=== PATIENT | male | born 1960 | race African-American/Black ===

== ENCOUNTER 2016-04-13 12:16 | Emergency (ER) | payer SELFPAY ==
[~2016-04-13] VITALS: Ht 188 cm; Wt 95.3 kg
[2016-04-13 12:38] LABS: BASO # 0.1 x10^3/uL (0.0-0.2); BASO % 1 % (0-3); EOS % 6 % (0-3); HEMATOCRIT 43.8 % (39.0-53.0); HEMOGLOBIN 14.3 g/dL (13.0-17.5); LYMPH # 2.7 x10^3/uL (1.0-4.8); LYMPH % 46 % (24-48); MEAN CORPUSCULAR HEMOGLOBIN 28 pg (25-35); MEAN CORPUSCULAR HGB CONC 33 g/dL (31-37); MEAN CORPUSCULAR VOLUME 86 fL (79-100); MONO % 7 % (0-9); NEUT % 40 % (31-73); PLATELET COUNT 244 x10^3/uL (140-400); RED BLOOD COUNT 5.08 x10^6/uL (4.30-5.70); RED CELL DISTRIBUTION WIDTH 13.7 % (11.5-14.5); WHITE BLOOD COUNT 5.9 x10^3/uL (4.0-11.0)
[2016-04-13] MEDS ORDERED: ONDANSETRON PF 4 MG/2 ML VIAL. IV ONE (12:45)
[2016-04-13] MEDS ORDERED: FENTANYL PF 100 MCG/2 ML VIAL. IV ONE (12:45)
[2016-04-13] MEDS ORDERED: IV NORMAL SALINE 1000ML BAG 1,000 ML IV ONE (12:45)
[2016-04-13 12:52] LABS: BILIRUBIN,URINE NEGATIVE (NEG); GLUCOSE,URINE NEGATIVE (NEG); NITRITE,URINE NEGATIVE (NEG); PROTEIN,URINE NEGATIVE (NEG-TRACE)
[2016-04-13 13:00] LABS: CREATININE 1.1 mg/dL (0.7-1.3); GFR 84.1; POTASSIUM 4.1 mmol/L (3.5-5.1)
[2016-04-13 13:04] LABS: BACTERIA,URINE 0 /HPF (0-FEW); RBC,URINE 0 /HPF (0-2); SQUAMOUS EPITHELIAL CELL,UR OCC /LPF; WBC,URINE 0 /HPF (0-4)
[2016-04-13 13:06] LABS: ALBUMIN/GLOBULIN RATIO 0.9 (1.0-1.7); TOTAL BILIRUBIN 0.6 mg/dL (0.2-1.0); TOTAL PROTEIN 8.4 g/dL (6.4-8.2)
--- NOTE | 2016-04-13 13:23 | RAD ---
Indication severe right flank pain and hematuria. Axial images through the abdomen and pelvis were obtained. The examination was tailored for detection of renal and/or ureteral calculi. No IV or gastrointestinal contrast was administered. No prior imaging of the abdomen or pelvis is available. The lung bases are clear. The liver and spleen appear unremarkable. The gallbladder appears grossly normal. No pancreatic abnormality is seen. There are no adrenal or renal anomalies seen. There are no renal calculi side. There is no hydronephrosis hydroureter or calcification seen along the course of either ureter. An acute finding in the abdomen is not apparent. The pelvis is unremarkable. A few diverticula are seen in the large bowel. Active inflammation is not seen. The appendix is seen in the right lower quadrant and appears normal There is some stranding in the mid abdominal mesentery. This is a nonspecific finding. A few lymph nodes are seen in the same area which is also nonspecific IMPRESSION: No definite acute finding seen in the abdomen or pelvis Mild stranding and adenopathy in the abdominal mesentery is nonspecific PQRS Compliance Statement: One or more of the following individualized dose reduction techniques were utilized for this examination: 1. Automated exposure control 2. Adjustment of the mA and/or kV according to patient size 3. Use of iterative reconstruction technique
[2016-04-13] MEDS ORDERED: ONDA4TAB7 PO (13:43)
[2016-04-13] MEDS ORDERED: HYDR-971 PO (13:43)
--- NOTE | 2016-04-13 13:44 | PHYS DOC ---
Past Medical History Past Medical History: Asthma, Other Additional Past Medical Histor: OSTEOARTHRITIS, DEGENERATIVE DISC DX Past Surgical History: Knee Replacement, Other Additional Past Surgical Histo: R TOE SX Alcohol Use: Occasionally Drug Use: None Adult General Chief Complaint Chief Complaint: FLANK PAIN [facility] HPI 56-year-old male presents with right sided flank pain. He states the pain started yesterday. He denies any gross hematuria. Denies any fever chills sweats nausea vomiting or diarrhea. He denies any melena or hematochezia. He states he is never had this problem before and he's not had a history of kidney stones in the past. He states currently his pain is moderate. He has not taken any medication at home to help with the discomfort.] Review of Systems Review of Systems Constitutional: Denies fever or chills [] Eyes: Denies change in visual acuity, redness, or eye pain [] HENT: Denies nasal congestion or sore throat [] Respiratory: Denies cough or shortness of breath [] Cardiovascular: No additional information not addressed in HPI [] GI: Denies abdominal pain, nausea, vomiting, bloody stools or diarrhea [] : Denies dysuria or hematuria [] Musculoskeletal: Right flank pain [] Integument: Denies rash or skin lesions [] Neurologic: Denies headache, focal weakness or sensory changes [] Endocrine: Denies polyuria or polydipsia [] Current Medications Current Medications Current Medications Medications (Trade) Dose Ordered Sig/Pratik Start Time Stop Time Status Last Admin Dose Admin Fentanyl Citrate (Fentanyl 2ml Vial) 50 mcg 1X ONCE 04/13/16 12:45 04/13/16 12:46 DC 04/13/16 12:55 50 MCG Ondansetron HCl (Zofran) 4 mg 1X ONCE 04/13/16 12:45 04/13/16 12:46 DC 04/13/16 12:55 4 MG Sodium Chloride (Iv Sodium Chloride 0.9% 1000ml Bag) 1,000 ml @ 1,000 mls/hr 1X ONCE 04/13/16 12:45 04/13/16 13:44 04/13/16 12:56 1,000 MLS/HR Allergies Allergies Allergies Coded Allergies Type Severity Reaction Last Updated Verified naproxen Allergy Intermediate 04/13/16 Yes Physical Exam Physical Exam Constitutional: Well developed, well nourished, no acute distress, non-toxic appearance. [] HENT: Normocephalic, atraumatic, bilateral external ears normal, oropharynx moist, no oral exudates, nose normal. [] Eyes: PERRLA, EOMI, conjunctiva normal, no discharge. [] Neck: Normal range of motion, no tenderness, supple, no stridor. [] Cardiovascular:Heart rate regular rhythm, no murmur [] Lungs & Thorax: Bilateral breath sounds clear to auscultation [] Abdomen: Bowel sounds normal, soft, no tenderness, no masses, no pulsatile masses. [] Skin: Warm, dry, no erythema, no rash. [] Back: No tenderness, no CVA tenderness. [] Extremities: No tenderness, no cyanosis, no clubbing, ROM intact, no edema. [] Neurologic: Alert and oriented X 3, normal motor function, normal sensory function, no focal deficits noted. [] Psychologic: Affect normal, judgement normal, mood normal. [] Current Patient Data Vital Signs Vital Signs Date Time Temp Pulse Resp B/P Pulse Ox O2 Delivery O2 Flow Rate FiO2 04/13/16 12:55 17 100 Room Air 04/13/16 12:30 98.1 85 222/112 98.1 Lab Values Laboratory Tests Test 04/13/16 12:30 04/13/16 12:37 White Blood Count 5.9x10^3/uL (4.0-11.0) Red Blood Count 5.08x10^6/uL (4.30-5.70) Hemoglobin 14.3g/dL (13.0-17.5) Hematocrit 43.8% (39.0-53.0) Mean Corpuscular Volume 86fL (79-100) Mean Corpuscular Hemoglobin 28pg (25-35) Mean Corpuscular Hemoglobin Concent 33g/dL (31-37) Red Cell Distribution Width 13.7% (11.5-14.5) Platelet Count 244x10^3/uL (140-400) Neutrophils (%) (Auto) 40% (31-73) Lymphocytes (%) (Auto) 46% (24-48) Monocytes (%) (Auto) 7% (0-9) Eosinophils (%) (Auto) 6% (0-3) H Basophils (%) (Auto) 1% (0-3) Neutrophils # (Auto) 2.4x10^3uL (1.8-7.7) Lymphocytes # (Auto) 2.7x10^3/uL (1.0-4.8) Monocytes # (Auto) 0.4x10^3/uL (0.0-1.1) Eosinophils # (Auto) 0.4x10^3/uL (0.0-0.7) Basophils # (Auto) 0.1x10^3/uL (0.0-0.2) Sodium Level 142mmol/L (136-145) Potassium Level 4.1mmol/L (3.5-5.1) Chloride Level 104mmol/L (98-107) Carbon Dioxide Level 29mmol/L (21-32) Anion Gap 9 (6-14) Blood Urea Nitrogen 15mg/dL (8-26) Creatinine 1.1mg/dL (0.7-1.3) Estimated GFR (Cockcroft-Gault) 84.1 BUN/Creatinine Ratio 14 (6-20) Glucose Level 151mg/dL (70-99) H Calcium Level 9.0mg/dL (8.5-10.1) Total Bilirubin 0.6mg/dL (0.2-1.0) Aspartate Amino Transferase (AST) 20U/L (15-37) Alanine Aminotransferase (ALT) 25U/L (16-63) Alkaline Phosphatase 70U/L (46-116) Total Protein 8.4g/dL (6.4-8.2) H Albumin 4.0g/dL (3.4-5.0) Albumin/Globulin Ratio 0.9 (1.0-1.7) L Lipase 100U/L (73-393) Urine Collection Type Unknown Urine Color Yellow Urine Clarity Clear Urine pH 6.0 Urine Specific [place] 1.020 Urine Protein Negativemg/dL (NEG-TRACE) Urine Glucose (UA) Negativemg/dL (NEG) Urine Ketones (Stick) Negativemg/dL (NEG) Urine Blood Negative (NEG) Urine Nitrite Negative (NEG) Urine Bilirubin Negative (NEG) Urine Urobilinogen Dipstick 1.0mg/dL (0.2 mg/dL) Urine Leukocyte Esterase Negative (NEG) Urine RBC 0/HPF (0-2) Urine WBC 0/HPF (0-4) Urine Squamous Epithelial Cells Occ/LPF Urine Bacteria 0/HPF (0-FEW) Urine Mucus Mod/LPF Laboratory Tests 04/13/16 12:30 Laboratory Tests 04/13/16 12:30 EKG EKG [] Radiology/Procedures Radiology/Procedures [] Impressions: PROCEDURE: ABDOMEN PELVIS WO CONTRAST Indication severe right flank pain and hematuria. Axial images through the abdomen and pelvis were obtained. The examination was tailored for detection of renal and/or ureteral calculi. No IV or gastrointestinal contrast was administered. No prior imaging of the abdomen or pelvis is available. The lung bases are clear. The liver and spleen appear unremarkable. The gallbladder appears grossly normal. No pancreatic abnormality is seen. There are no adrenal or renal anomalies seen. There are no renal calculi side. There is no hydronephrosis hydroureter or calcification seen along the course of either ureter. An acute finding in the abdomen is not apparent. The pelvis is unremarkable. A few diverticula are seen in the large bowel. Active inflammation is not seen. The appendix is seen in the right lower quadrant and appears normal There is some stranding in the mid abdominal mesentery. This is a nonspecific finding. A few lymph nodes are seen in the same area which is also nonspecific IMPRESSION: No definite acute finding seen in the abdomen or pelvis Mild stranding and adenopathy in the abdominal Course & Med Decision Making Course & Med Decision Making Pertinent Labs and Imaging studies reviewed. (See chart for details) [ED course: Evaluation reveals 56-year-old male in mild to moderate distress secondary to flank pain. CT scan was unremarkable for any acute process. He was given IV fluids and pain medication during his stay in the department which did help alleviate his symptoms. I did discuss with the patient that we did not find anything serious today. I will give the patient some pain medication to take at home.] Dragon Disclaimer Dragon Disclaimer This electronic medical record was generated, in whole or in part, using a voice recognition dictation system. Departure Departure Impression: Primary Impression: Right flank pain Disposition: HOME, SELF-CARE Condition: IMPROVED Referrals: NO PCP (PCP) Patient Instructions: Flank Pain Additional Instructions: Thank you for allowing us to participate in your care today. Followup with your primary care physician in 3 days if your symptoms do not improve. Return to the emergency department you have any new or concerning findings. This should be evaluated by the primary care physician and any necessary consulting services for continued management within a few days after discharge. Return to emergency room if you have any new or concerning symptoms including but not limited to fever, chills, nausea, vomiting, intractable pain, any new rashes, chest pain, shortness of air, uncontrolled bleeding, difficulty breathing, and/or vision loss. You may have been prescribed medication that can change in your level of thinking and ability to operate machinery. These medications include hydrocodone and Ativan. Also, Benadryl has been known to do this as well. Be sure to check with your pharmacist and ask if the medications you've prescribed can affect your level of consciousness. I recommend not operating heavy machinery or driving while on medication such as these. Scripts Ondansetron Hcl (Zofran)4 Mg Tablet1 Tab PO Q8HRS PRN NAUSEA #20 TAB Prov:GUZMAN HU DO 04/13/16 Hydrocodone/Apap 5-325 ([place] 5-325 Tablet)1 Each Tablet1 Tab PO PRN Q6HRS PRN PAIN #14 TAB Prov:GUZMAN HU DO 04/13/16 GUZMAN HU DO Apr 13, 2016 13:44
[2016-04-13 13:50] VITALS: BP 175/81
== END 2016-04-13 13:55 | disposition home or self-care (01) ==
LOC: ER 12:16
DX: R10.9 Unspecified abdominal pain (principal); J45.909 Unspecified asthma, uncomplicated; M19.90 Unspecified osteoarthritis, unspecified site; Z96.659 Presence of unspecified artificial knee joint; Z88.8 Allergy status to other drugs, medicaments and biological substances
CPT/HCPCS: 36415; 74176; 80053; 81001; 83690; 85027; 96361; 96374; 96375; 99285; J2405; J3010; J7030

== ENCOUNTER 2016-04-15 19:57 | Emergency (ER) | payer SELFPAY ==
[~2016-04-15 19:57] MED LIST: HYDR-971 PO; ONDA4TAB7 PO
[2016-04-15 22:05] VITALS: BP 228/109
[2016-04-15] MEDS ORDERED: CYCL10TA2 PO (22:31)
[2016-04-15] MEDS ORDERED: HYDR12.53 PO (22:31)
[2016-04-15] MEDS ORDERED: PRED20TA PO (22:31)
--- NOTE | 2016-04-15 22:31 | PHYS DOC ---
Past Medical History Past Medical History: Asthma, Other Additional Past Medical Histor: OSTEOARTHRITIS, DEGENERATIVE DISC DX Past Surgical History: Knee Replacement, Other Additional Past Surgical Histo: R TOE SX Alcohol Use: Occasionally Drug Use: None Adult General Chief Complaint Chief Complaint: MEDICATION REFILL [facility] HPI Patient is a 56 year old who presents emergency Department stating is having a back pain states that the pain radiates down into his left leg. He denies any numbness or tingling. He states that he was here 2 days ago and was placed on hydrocodone with Zofran as he felt that this was related to his kidney stones issues in the past. Although CT scan at that time was negative. Patient returns tonight because he is out of his hydrocodone and is wanting something more for pain and discomfort. Patient states that he is new to the area and states that he normally had taken hydrocodone when he lived in [place] with a muscle relaxer. Patient also states that he does not have a history of high blood pressure although his blood pressure is been elevated on his last visit and at this visit. Patient denies any headaches, chest pain shortness of air difficulty breathing. Patient also denies any urinary symptoms at this time. Review of Systems Review of Systems Constitutional: Denies fever or chills [] Eyes: Denies change in visual acuity, redness, or eye pain [] HENT: Denies nasal congestion or sore throat [] Respiratory: Denies cough or shortness of breath [] Cardiovascular: No additional information not addressed in HPI [] GI: Denies abdominal pain, nausea, vomiting, bloody stools or diarrhea [] : Denies dysuria or hematuria [] Musculoskeletal: back pain denies joint pain [] Integument: Denies rash or skin lesions [] Neurologic: Denies headache, focal weakness or sensory changes [] Allergies Allergies Allergies Coded Allergies Type Severity Reaction Last Updated Verified naproxen Allergy Intermediate 04/13/16 Yes Physical Exam Physical Exam Constitutional: Well developed, well nourished, no acute distress, non-toxic appearance. [] HENT: Normocephalic, atraumatic, bilateral external ears normal, oropharynx moist, no oral exudates, nose normal. [] Eyes: PERRLA, EOMI, conjunctiva normal, no discharge. [] Neck: Normal range of motion, no tenderness, supple, no stridor. [] Cardiovascular:Heart rate regular rhythm, no murmur [] Lungs & Thorax: Bilateral breath sounds clear to auscultation [] Skin: Warm, dry, no erythema, no rash. [] Back: No tenderness, right CVA tenderness. [] Extremities: No tenderness, no cyanosis, no clubbing, ROM intact, no edema. Peripheral pulses 2+ cap refill brisk less than 2 seconds. No swelling or edema noted in lower extremities. Neurologic: Alert and oriented X 3, normal motor function, normal sensory function, no focal deficits noted. [] Psychologic: Affect normal, judgement normal, mood normal. [] Current Patient Data Vital Signs Vital Signs Date Time Temp Pulse Resp B/P Pulse Ox O2 Delivery O2 Flow Rate FiO2 04/15/16 22:05 99.1 90 16 98 Room Air 99.1 EKG EKG [] Radiology/Procedures Radiology/Procedures [] Course & Med Decision Making Course & Med Decision Making Pertinent Labs and Imaging studies reviewed. (See chart for details) Patient will be placed on hydrochlorothiazide for his blood pressure with recommendations to follow-up with a primary care physician in regards to his blood pressure being elevated. He'll be provided with steroids to help with inflammation as he states he is allergic to naproxen. He'll be provided with hydrocodone. He will also be provided with a list of physicians in which she can follow-up with. Patient will be recommended follow-up on Monday or Monday. Patient is also instructed to return back to emergency department if he should develop any shortness of air chest pain chest discomfort or any headaches. His also recommended to monitor his blood pressure at home and avoid high salt diet. Patient will be discharged home in stable condition signs and symptoms to return back to emergency parents been provided. His with discharge instructions treatment regimens and follow-up recommendations. [] Dragon Disclaimer Dragon Disclaimer This electronic medical record was generated, in whole or in part, using a voice recognition dictation system. Departure Departure Impression: Primary Impression: Chronic back pain Additional Impression: Hypertension Disposition: HOME, SELF-CARE Condition: STABLE Referrals: NO PCP (PCP) Patient Instructions: Cardiac Diet, Chronic Back Pain, Hypertension Additional Instructions: Activity as tolerated. Flexeril will cause drowsiness do not take any be alert and oriented. Hydrocodone will also cause drowsiness do not take any be alert and oriented. Medications as prescribed. Follow-up with the primary care physician in the next 3-5 days. Monitor your blood pressures. Low salt diet. Return back to the emergency department for any signs and symptoms of become worse such as chest pain shortness of air difficulty breathing or headache. Scripts Hydrochlorothiazide (Hydrochlorothiazide Capsule )12.5 Mg Capsule1 Cap PO DAILY #15 CAP Ref 0 Prov:CHING JEAN NP 04/15/16 Prednisone 20 Mg [id number] Mg PO DAILY #10 TAB Prov:CHING JEAN NP 04/15/16 Cyclobenzaprine Hcl 10 Mg [id number] Mg PO TID #20 TAB Prov:CHING JEAN NP 04/15/16 Problem Qualifiers CHING JEAN NP Apr 15, 2016 22:31
[2016-04-15] MEDS ORDERED: HYDR-971 PO (22:33)
== END 2016-04-15 22:41 | disposition home or self-care (01) ==
LOC: ER 19:57
DX: M54.89 Other dorsalgia (principal); G89.29 Other chronic pain; I10 Essential (primary) hypertension; Z76.0 Encounter for issue of repeat prescription; J45.909 Unspecified asthma, uncomplicated; Z87.442 Personal history of urinary calculi; M19.90 Unspecified osteoarthritis, unspecified site; Z96.659 Presence of unspecified artificial knee joint; Z88.8 Allergy status to other drugs, medicaments and biological substances
CPT/HCPCS: 99283

== ENCOUNTER 2016-05-04 07:15 | Emergency (ER) | payer OTHER ==
[~2016-05-04] VITALS: Ht 188 cm; Wt 96.2 kg
[~2016-05-04 07:15] MED LIST changes: +CYCL10TA2 PO; +HYDR12.53 PO; +PRED20TA PO
[2016-05-04 07:20] VITALS: BP 207/102
[2016-05-04] MEDS ORDERED: HYDR-971 PO (07:59)
[2016-05-04] MEDS ORDERED: CYCL10TA2 PO (07:59)
--- NOTE | 2016-05-04 07:59 | PHYS DOC ---
Past Medical History Past Medical History: Asthma, Other Additional Past Medical Histor: OSTEOARTHRITIS, DEGENERATIVE DISC DX Past Surgical History: Knee Replacement, Other Additional Past Surgical Histo: R TOE SX Alcohol Use: Occasionally Drug Use: None Adult General Chief Complaint Chief Complaint: LOWER BACK PAIN OR INJURY [facility] 56-year-old male with history of chronic back pain presents with an exacerbation of his low back pain after falling down between 2 seats on the bus this morning. He states the pain is severe. He states it's worse with any movement. He states the pain was bad enough that he needed to call EMS to bring him in. He denies any bowel or bladder dysfunction. He denies any saddle paresthesia. At this time he denies any radicular symptoms. [] Review of Systems Review of Systems Constitutional: Denies fever or chills [] Eyes: Denies change in visual acuity, redness, or eye pain [] HENT: Denies nasal congestion or sore throat [] Respiratory: Denies cough or shortness of breath [] Cardiovascular: No additional information not addressed in HPI [] GI: Denies abdominal pain, nausea, vomiting, bloody stools or diarrhea [] : Denies dysuria or hematuria [] Musculoskeletal: Per history of present illness [] Integument: Denies rash or skin lesions [] Neurologic: Denies headache, focal weakness or sensory changes [] Endocrine: Denies polyuria or polydipsia [] Allergies Allergies Allergies Coded Allergies Type Severity Reaction Last Updated Verified naproxen Allergy Intermediate 04/13/16 Yes Physical Exam Physical Exam Constitutional: Well developed, well nourished, no acute distress, non-toxic appearance. [] HENT: Normocephalic, atraumatic, bilateral external ears normal, oropharynx moist, no oral exudates, nose normal. [] Eyes: PERRLA, EOMI, conjunctiva normal, no discharge. [] Neck: Normal range of motion, no tenderness, supple, no stridor. [] Cardiovascular:Heart rate regular rhythm, no murmur [] Lungs & Thorax: Bilateral breath sounds clear to auscultation [] Abdomen: Bowel sounds normal, soft, no tenderness, no masses, no pulsatile masses. [] Skin: Warm, dry, no erythema, no rash. [] Back: Mild lumbar paraspinal tenderness no midline tenderness negative straight leg raise. [] Extremities: No tenderness, no cyanosis, no clubbing, ROM intact, no edema. [] Neurologic: Alert and oriented X 3, normal motor function, normal sensory function, no focal deficits noted. [] Psychologic: Affect normal, judgement normal, mood normal. [] Current Patient Data Vital Signs Vital Signs Date Time Temp Pulse Resp B/P Pulse Ox O2 Delivery O2 Flow Rate FiO2 05/04/16 07:20 98.6 75 18 98 Room Air 98.6 EKG EKG [] Radiology/Procedures Radiology/Procedures [] Course & Med Decision Making Course & Med Decision Making Pertinent Labs and Imaging studies reviewed. (See chart for details) [ED course: Evaluation reveals 56-year-old male in no significant stress. He does have chronic back pain at a baseline and I have seen him in the past and did not feel like he's any worse than last time I saw him.] Dragon Disclaimer Dragon Disclaimer This electronic medical record was generated, in whole or in part, using a voice recognition dictation system. Departure Departure Impression: Primary Impression: Chronic back pain Disposition: 01 HOME, SELF-CARE Condition: STABLE Referrals: NO PCP (PCP) Patient Instructions: Back Pain, Adult Additional Instructions: Thank you for allowing us to participate in your care today. Followup with your primary care physician in 3 days if your symptoms do not improve. Return to the emergency department you have any new or concerning findings. This should be evaluated by the primary care physician and any necessary consulting services for continued management within a few days after discharge. Return to emergency room if you have any new or concerning symptoms including but not limited to fever, chills, nausea, vomiting, intractable pain, any new rashes, chest pain, shortness of air, uncontrolled bleeding, difficulty breathing, and/or vision loss. You may have been prescribed medication that can change in your level of thinking and ability to operate machinery. These medications include hydrocodone and Ativan. Also, Benadryl has been known to do this as well. Be sure to check with your pharmacist and ask if the medications you've prescribed can affect your level of consciousness. I recommend not operating heavy machinery or driving while on medication such as these. Scripts Hydrocodone/Apap 5-325 ([place] 5-325 Tablet)1 Each Tablet1 Tab PO PRN Q6HRS PRN PAIN #14 TAB Prov:GUZMAN HU DO 05/04/16 Cyclobenzaprine Hcl 10 Mg Tablet1 Tab PO TID PRN MUSCLE PAIN #30 TAB Prov:GUZMAN HU DO 05/04/16 Problem Qualifiers Primary Impression: Chronic back pain Back pain location: low back pain Back pain laterality: bilateral Sciatica presence: without sciatica Qualified Code: M54.5 - Low back pain GUZMAN HU DO May 04, 2016 07:59
== END 2016-05-04 08:07 | disposition home or self-care (01) ==
LOC: ER 07:15
DX: G89.29 Other chronic pain (principal); M54.5 Low back pain; J45.909 Unspecified asthma, uncomplicated; M19.90 Unspecified osteoarthritis, unspecified site; Z88.5 Allergy status to narcotic agent; W19.XXXA Unspecified fall, initial encounter; Y93.89 Activity, other specified; Y92.89 Other specified places as the place of occurrence of the external cause; Y99.8 Other external cause status
CPT/HCPCS: 99283